=== PATIENT | female | born 1990 | race Caucasian/White ===

== ENCOUNTER 2024-09-02 03:42 | Emergency (ER) | payer BC, SELFPAY ==
[2024-09-02] VITALS (23 sets, daily range): BP systolic 102–128; BP diastolic 42–104; PULSE 63–89; RESP 20; TEMP 36.5; O2SAT 95–98; BMI 35.8
--- NOTE | 2024-09-02 03:59 | CRLHL7_ITS ---
For Patients: As a result of the Century Cures Act, medical imaging exams and procedure reports are released immediately into your electronic medical record. You may view this report before your referring provider. If you have questions, please contact your health care provider. Indication: Upper abdominal pain, worse in the right upper quadrant. History of gallstones.. Technique: CT of the abdomen and pelvis was performed following the administration of 100 mL Isovue 370. Comparison: None available. Findings: Visualized lung bases: Clear. Liver: Hepatic steatosis. Multiple gallstones within the gallbladder body and neck. No definite pericholecystic inflammatory change. No biliary ductal dilation. Pancreas: Unremarkable. Spleen: Unremarkable. Adrenals: Unremarkable. Kidneys: Few too small to characterize hypodensities within both kidneys. Right upper pole renal cortical scarring. No nephrolithiasis or hydronephrosis. Aorta/IVC: Retroaortic renal vein. Aorta is normal in caliber. Lymph nodes: No lymphadenopathy. Bowel: Small hiatal hernia. Nonobstructed bowel. Normal appendix. No localized inflammatory changes. No intraperitoneal free air or fluid. Pelvis: Unremarkable. Bones/body wall: Unremarkable for age. Impression: 1. Cholelithiasis without definite CT evidence of acute cholecystitis. Recommend right upper quadrant abdominal ultrasound for further evaluation. 2. Hepatic steatosis. Please note that all CT scans at this facility use dose modulation, iterative reconstruction, and/or weight-based dosing when appropriate to reduce radiation dose to as low as reasonably achievable. Dictated by Enedelia Lee MD @ 09/02/2024 5:01:13 AM (Electronically Signed)
--- NOTE | 2024-09-02 04:05 | ED_ITS ---
HPI - General Adult General Date Seen: 09/02/24 <Tristan P Papito Last Filed: 09/02/24 08:02> Chief complaint: Abdominal Pain <Tristan Cobos - Last Filed: 09/02/24 08:02> Stated complaint: gallbladder pain <Tristan Cobos - Last Filed: 09/02/24 08:02> Time Seen by Provider: 09/02/24 03:52 <Tristan Cobos - Last Filed: 09/02/24 08:02> Source: patient <Tristan Cobos DO - Last Filed: 09/02/24 08:02> Mode of arrival: ambulatory <Tristan Cobos Last Filed: 09/02/24 08:02> Limitations: no limitations <Tristan Cobos Filed: 09/02/24 08:02> History of Present Illness HPI narrative: Patient is a 34-year-old female presenting to emergency department for abdominal and back pain. She states symptoms started around 21:00 and have been gradually getting worse throughout the night. She took 2 Tylenol around 02:30 without any improvement in her symptoms. She is also feeling very nauseated at this time. Pain starts and her right upper quadrant and radiates to her epigastric region and her mid back. States she has had the exact same symptoms in the past about 2 or 3 years ago and at that time they were going to take out her gallbladder. They did of not taking her gallbladder out due to her getting sick the day of surgery with an unrelated illness and since she never had further symptoms after that surgery was never performed. States the only diffe rence this time is now she is nauseated while previously she was not having nausea with the pain. She had tacos at about 19:00 and was not having any symptoms at that time. She also states she had a bowel movement today that was normal. Has not had any fevers or chills. Denies chest pain, shortness of breath, headache, lightheadedness, dizziness, weakness, numbness, vision changes. No previous abdominal surgeries <Tristan Cobos - Last Filed: 09/02/24 08:02> Related Data Allergies/adverse reactions: Allergies Allergy/AdvReac Type Severity Reaction Status Date / Time No Known Drug Allergies Allergy Verified 09/02/24 04:49 <Tristan Cobos DO - Last Filed: 09/02/24 08:02> Review of Systems Status of ROS: Reports: 10 or more systems reviewed and unremarkable except as noted in History and below <Tristan Cobos DO - Last Filed: 09/02/24 08:02> [facility] Social History: Social History Smoking Status: Never smoker Do you use any of these nicotine containing products: None Second hand tobacco smoke exposure: No How often do you have a drink containing alcohol: never AUDIT-C Alcohol total score: 0 Non-prescribed substance use: denies use service: No <Tristan Cobos DO - Last Filed: 09/02/24 08:02> Exam Narrative: Exam Narrative: Const: Well-nourished, Well-developed, in moderate distress Eyes: PERRL, no conjunctival injection, and symmetrical lids HENT: Atraumatic external nose and ears. Moist mucous membranes. Neck: Symmetric, trachea midline, No thyromegaly. CVS: RRR, No murmurs or gallops. Peripheral pulses 2+ and equal in all ex tremities RESP: Unlabored respiratory effort. Clear to auscultation bilaterally. GI: Nontender/Nondistended, No rebound or guarding. Negative Gil sign MSK:Extremities w/o deformity, Normal Active ROM Skin: Warm, Dry. No rashes or lesions. Neuro: Normal Muscle tone, No focal neurological deficits. Psych: Awake, Alert, & Oriented x3. Appropriate mood and affect. <Tristan Cobos DO - Last Filed: 09/02/24 08:02> Const: Vital Signs, click to edit/add: Vital Signs - 24 hr 09/02/24 03:50 09/02/24 04:25 09/02/24 04:30 Temperature 97.7 F Pulse Rate 83 80 Pulse Rate [Pulse Oximeter] 86 Respiratory Rate 20 Blood Pressure Blood Pressure [Ri ght Upper Arm] 128/104 H Pulse Oximetry 98 97 96 Oxygen Delivery Me thod Room Air 09/02/24 04:31 09/02/24 04:32 09/02/24 05:00 Temperature Pulse Rate 72 73 68 Pulse Rate [Pulse Oximeter] Respiratory Rate Blood Pressure 119/88 Blood Pressure [Ri ght Upper Arm] Pulse Oximetry 97 97 96 Oxygen Delivery Me thod 09/02/24 05:01 09/02/24 05:02 09/02/24 05:30 Temperature Pulse Rate 69 72 69 Pulse Rate [Pulse Oximeter] Respiratory Rate Blood Pressure 119/77 Blood Pressure [Ri ght Upper Arm] Pulse Oximetry 96 96 95 Oxygen Delivery Me thod 09/02/24 05:31 09/02/24 05:32 09/02/24 06:00 Temperature Pulse Rate 63 67 65 Pulse Rate [Pulse Oximeter] Respiratory Rate Blood Pressure 117/72 Blood Pressure [Ri ght Upper Arm] Pulse Oximetry 95 95 95 Oxygen Delivery Me thod 09/02/24 06:01 09/02/24 06:02 09/02/24 06:30 Temperature Pulse Rate 63 74 75 Pulse Rate [Pulse Oximeter] Respiratory Rate Blood Pressure 107/75 Blood Pressure [Ri ght Upper Arm] Pulse Oximetry 96 95 95 Oxygen Delivery Me thod 09/02/24 06:31 09/02/24 07:00 09/02/24 07:01 Temperature Pulse Rate 68 85 89 Pulse Rate [Pulse Oximeter] Respiratory Rate Blood Pressure 102/70 106/68 Blood Pressure [Ri ght Upper Arm] Pulse Oximetry 95 98 98 Oxygen Delivery Me thod 09/02/24 07:30 09/02/24 07:31 09/02/24 07:32 Temperature Pulse Rate 72 68 82 Pulse Rate [Pulse Oximeter] Respiratory Rate Blood Pressure 114/42 L Blood Pressure [Ri ght Upper Arm] Pulse Oximetry 97 97 97 Oxygen Delivery Me thod 09/02/24 08:00 09/02/24 08:01 Temperature Pulse Rate 72 76 Pulse Rate [Pulse Oximeter] Respiratory Rate Blood Pressure 105/75 Blood Pressure [Ri ght Upper Arm] Pulse Oximetry 97 96 Oxygen Delivery Me thod <Tristan Cobos, DO - Last Filed: 09/02/24 08:02> Vital Signs, click to edit/add: Vital Signs - 24 hr 09/02/24 03:50 09/02/24 04:25 09/02/24 04:30 Temperature 97.7 F Pulse Rate 83 80 Pulse Rate [Pulse Oximeter] 86 Respiratory Rate 20 Blood Pressure Blood Pressure [Ri ght Upper Arm] 128/104 H Pulse Oximetry 98 97 96 Oxygen Delivery Me thod Room Air 09/02/24 04:31 09/02/24 04:32 09/02/24 05:00 Temperature Pulse Rate 72 73 68 Pulse Rate [Pulse Oximeter] Respiratory Rate Blood Pressure 119/88 Blood Pressure [Ri ght Upper Arm] Pulse Oximetry 97 97 96 Oxygen Delivery Me thod 09/02/24 05:01 09/02/24 05:02 09/02/24 05:30 Temperature Pulse Rate 69 72 69 Pulse Rate [Pulse Oximeter] Respiratory Rate Blood Pressure 119/77 Blood Pressure [Ri ght Upper Arm] Pulse Oximetry 96 96 95 Oxygen Delivery Me thod 09/02/24 05:31 09/02/24 05:32 09/02/24 06:00 Temperature Pulse Rate 63 67 65 Pulse Rate [Pulse Oximeter] Respiratory Rate Blood Pressure 117/72 Blood Pressure [Ri ght Upper Arm] Pulse Oximetry 95 95 95 Oxygen Delivery Me thod 09/02/24 06:01 09/02/24 06:02 09/02/24 06:30 Temperature Pulse Rate 63 74 75 Pulse Rate [Pulse Oximeter] Respiratory Rate Blood Pressure 107/75 Blood Pressure [Ri ght Upper Arm] Pulse Oximetry 96 95 95 Oxygen Delivery Me thod 09/02/24 06:31 09/02/24 07:00 09/02/24 07:01 Temperature Pulse Rate 68 85 89 Pulse Rate [Pulse Oximeter] Respiratory Rate Blood Pressure 102/70 106/68 Blood Pressure [Ri ght Upper Arm] Pulse Oximetry 95 98 98 Oxygen Delivery Me thod 09/02/24 07:30 09/02/24 07:31 09/02/24 07:32 Temperature Pulse Rate 72 68 82 Pulse Rate [Pulse Oximeter] Respiratory Rate Blood Pressure 114/42 L Blood Pressure [Ri ght Upper Arm] Pulse Oximetry 97 97 97 Oxygen Delivery Me thod 09/02/24 08:00 09/02/24 08:01 Temperature Pulse Rate 72 76 Pulse Rate [Pulse Oximeter] Respiratory Rate Blood Pressure 105/75 Blood Pressure [Ri ght Upper Arm] Pulse Oximetry 97 96 Oxygen Delivery Me thod <Kurtis Downs MD - Last Filed: 09/02/24 08:28> Course Course ED Course: Patient signed out to Dr. Downs at shift change-8:00 a.m. 34-year-old female had presented with abdominal pain thought to be related to biliary colic. Pain resolved while here in the ER. Patient had presented on the overnight shift. She had a CT scan of her abdomen that showed gallstones but no evidence for cholecystitis. Dr. Cobos suspects that this was a on self-limited episode of biliary colic. White count, LFTs, lipase are normal. He anticipates the patient will discharge home with plan for outpatient surgery clinic follow-up. Ultrasound is not available on the overnight here, no tech in house. Dr. Cobos ordered a gallbladder ultrasound this morning to make sure we are not missing other early signs of acute cholecystitis. Dr. Downs will follow-up on the results of the gallbladder ultrasound Gallbladder ultrasound: IMPRESSION: 1. Slight contracted appearance of the gallbladder. Cholelithiasis. Nonspecific gallbladder wall thickening measuring 5 millimeters. Negative sonographic Gil`s sign. 2. Fatty liver. Patient can be discharged as per Dr. Cobos so plan. <Kurtis Downs MD - Last Filed: 09/02/24 08:28> Vital Signs Vital signs: Initial Vital Signs Temperature 97.7 F 09/02/24 03:50 Temperature Source Temporal Artery Scan 09/02/24 03:50 Pulse Rate 86 09/02/24 03:50 Pulse Rhythm Regular 09/02/24 03:50 Pulse Strength 3+ Normal 09/02/24 03:50 Respiratory Rate 20 09/02/24 03:50 Blood Pressure 128/104 H 09/02/24 03:50 Blood Pressure Mean 112 H 09/02/24 03:50 Blood Pressure Position Semi-Fowlers 09/02/24 03:50 Pulse Oximetry 98 09/02/24 03:50 Oxygen Delivery Method Room Air 09/02/24 03:50 Vital Signs Temperature 97.7 F 09/02/24 03:50 Pulse Rate 86 09/02/24 03:50 Respiratory Rate 20 09/02/24 03:50 Blood Pressure 128/104 H 09/02/24 03:50 Pulse Oximetry 98 09/02/24 03:50 Oxygen Delivery Method Room Air 09/02/24 03:50 Temperature 97.7 F 09/02/24 03:50 Pulse Rate 76 09/02/24 08:01 Respiratory Rate 20 09/02/24 03:50 Blood Pressure 105/75 09/02/24 08:01 Pulse Oximetry 96 09/02/24 08:01 Oxygen Delivery Method Room Air 09/02/24 03:50 <Tristan Cobos DO - Last Filed: 09/02/24 08:02> Initial Vital Signs Temperature 97.7 F 09/02/24 03:50 Temperature Source Temporal Artery Scan 09/02/24 03:50 Pulse Rate 86 09/02/24 03:50 Pulse Rhythm Regular 09/02/24 03:50 Pulse Strength 3+ Normal 09/02/24 03:50 Respiratory Rate 20 09/02/24 03:50 Blood Pressure 128/104 H 09/02/24 03:50 Blood Pressure Mean 112 H 09/02/24 03:50 Blood Pressure Position Semi-Fowlers 09/02/24 03:50 Pulse Oximetry 98 09/02/24 03:50 Oxygen Delivery Method Room Air 09/02/24 03:50 Vital Signs Temperature 97.7 F 09/02/24 03:50 Pulse Rate 86 09/02/24 03:50 Respiratory Rate 20 09/02/24 03:50 Blood Pressure 128/104 H 09/02/24 03:50 Pulse Oximetry 98 09/02/24 03:50 Oxygen Delivery Method Room Air 09/02/24 03:50 Temperature 97.7 F 09/02/24 03:50 Pulse Rate 76 09/02/24 08:01 Respiratory Rate 20 09/02/24 03:50 Blood Pressure 105/75 09/02/24 08:01 Pulse Oximetry 96 09/02/24 08:01 Oxygen Delivery Method Room Air 09/02/24 03:50 <Kurtis Downs MD - Last Filed: 09/02/24 08:28> Medications Administered Medications: Discontinued Medications Generic Name Dose Route Start Last Admin Trade Name Freq PRN Reason Stop Dose Admin Morphine Sulfate 4 mg 09/02/24 03:59 09/02/24 04:19 Morphine 4 Mg/Ml Inj IVP 09/02/24 04:00 4 mg ONCE ONE Administration Ondansetron HCl 4 mg 09/02/24 03:59 09/02/24 04:20 Ondansetron 2 Mg/Ml Inj IVP 09/02/24 04:00 4 mg ONCE ONE Administration <DO Ceasar Bae Last Filed: 09/02/24 08:02> Discontinued Medications Generic Name Dose Route Start Last Admin Trade Name Wendy PRN Reason Stop Dose Admin Morphine Sulfate 4 mg 09/02/24 03:59 09/02/24 04:19 Morphine 4 Mg/Ml Inj IVP 09/02/24 04:00 4 mg ONCE ONE Administration Ondansetron HCl 4 mg 09/02/24 03:59 09/02/24 04:20 Ondansetron 2 Mg/Ml Inj IVP 09/02/24 04:00 4 mg ONCE ONE Administration <Kurtis Downs MD - Last Filed: 09/02/24 08:28> Medical Decision Making [facility] Narrative Medical decision making narrative: Patient is a 34-year-old female presenting to emergency department for right upper abdominal pain and back pain. Concerning pain is radiating to her back to a did have some thought about possible AAA but she has no risk factors and is otherwise stable vital signs of this seems unlikely. Differential also includes pancreatitis, liver disease, gallbladder disease. SBO seems unlikely concern she has had no previous surgery but this will be better evaluated with the CT. Do not have ultrasound available for another couple hours. Also ordered CBC, CMP, lipase. Morphine given for pain and Zofran for nausea. Patient's symptoms improved with the medication and she is able to rest now. Lab work returned showing no concerning abnormalities. CT scan reviewed myself and the radiologist shows cholelithiasis but no clear signs of cholecystitis. Radiology does recommend an ultrasound. This ultrasound is ordered. I did inform patient so at we will call ultrasound at 06:30 to perform the ultrasound and they are agreeable to this plan. Preliminary read from the ep technologist shows gradually worsening cholelithiasis compared to previous ultrasounds. No signs of cholecystitis. Patient will be signed out to my colleague pending official read. <Tristan Cobos DO - Last Filed: 09/02/24 08:02> Lab Data Labs: Lab Results 09/02/24 Range/Units 04:18 WBC 7.49 (4.50-11.00) K/uL RBC 4.31 (4.00-5.20) m/uL Hgb 12.7 (12.0-16.0) gm/dL Hct 36.5 (33.0-51.0) % MCV 85 (80-100) fL MCH 30 (26-34) pg MCHC 35 (32-36) gm/dL RDW Coeff of Shiv 12.0 (11.5-15.5) % Plt Count 304 (140-440) K/uL Neut % (Auto) 77.2 H (42.0-72.0) % Lymph % (Auto) 16.2 L (20-44) % [place] % (Auto) 5.3 (0.0-11.0) % Eos % (Auto) 0.1 (0.0-7.0) % Baso % (Auto) 0.4 (0.0-3.0) % Neut # (Auto) 5.80 (1.7-7.0) K/uL Lymph # (Auto) 1.20 (0.90-2.90) K/uL [place] # (Auto) 0.40 (0.00-0.90) K/UL Eos # (Auto) 0.01 (0.00-0.50) K/uL Baso # (Auto) 0.03 (0.00-0.30) K/uL Abs Immat Gran (auto) 0.06 (0.00-0.30) K/uL Imm/Tot Granulo (auto) 0.8 % Sodium 137 (135-149) mmol/L Potassium 4.1 (3.6-5.1) mmol/L Chloride 106 (96-114) mmol/L Carbon Dioxide 23 (20-32) mmol/L Anion Gap 8 (7-15) mEq/L BUN 11 (5-24) mg/dL Creatinine 0.7 (0.5-1.5) mg/dL Estimated Creat Clear 100.94 Estimated GFR 116 ml/min Glucose 120 H (60-115) mg/dL Calcium 9.3 (8.4-10.6) mg/dL Total Bilirubin 0.5 (0.1-1.5) mg/dL AST 26 (12-35) U/L ALT 20 (4-35) U/L Alkaline Phosphatase 48 (40-150) U/L Total Protein 7.6 (6.0-8.3) g/dL Albumin 4.7 (3.3-5.0) g/dL Lipase 85 (23-300) U/L <Tristan Cobos, - Last Filed: 09/02/24 08:02> Lab Results 09/02/24 Range/Units 04:18 WBC 7.49 (4.50-11.00) K/uL RBC 4.31 (4.00-5.20) m/uL Hgb 12.7 (12.0-16.0) gm/dL Hct 36.5 (33.0-51.0) % MCV 85 (80-100) fL MCH 30 (26-34) pg MCHC 35 (32-36) gm/dL RDW Coeff of Shiv 12.0 (11.5-15.5) % Plt Count 304 (140-440) K/uL Neut % (Auto) 77.2 H (42.0-72.0) % Lymph % (Auto) 16.2 L (20-44) % [place] % (Auto) 5.3 (0.0-11.0) % Eos % (Auto) 0.1 (0.0-7.0) % Baso % (Auto) 0.4 (0.0-3.0) % Neut # (Auto) 5.80 (1.7-7.0) K/uL Lymph # (Auto) 1.20 (0.90-2.90) K/uL [place] # (Auto) 0.40 (0.00-0.90) K/UL Eos # (Auto) 0.01 (0.00-0.50) K/uL Baso # (Auto) 0.03 (0.00-0.30) K/uL Abs Immat Gran (auto) 0.06 (0.00-0.30) K/uL Imm/Tot Granulo (auto) 0.8 % Sodium 137 (135-149) mmol/L Potassium 4.1 (3.6-5.1) mmol/L Chloride 106 (96-114) mmol/L Carbon Dioxide 23 (20-32) mmol/L Anion Gap 8 (7-15) mEq/L BUN 11 (5-24) mg/dL Creatinine 0.7 (0.5-1.5) mg/dL Estimated Creat Clear 100.94 Estimated GFR 116 ml/min Glucose 120 H (60-115) mg/dL Calcium 9.3 (8.4-10.6) mg/dL Total Bilirubin 0.5 (0.1-1.5) mg/dL AST 26 (12-35) U/L ALT 20 (4-35) U/L Alkaline Phosphatase 48 (40-150) U/L Total Protein 7.6 (6.0-8.3) g/dL Albumin 4.7 (3.3-5.0) g/dL Lipase 85 (23-300) U/L <Kurtis Downs MD - Last Filed: 09/02/24 08:28> Imaging Data CT scan abdomen and pelvis: Attestation: I have reviewed the pertinent imaging results. <Tristan Cobos DO - Last Filed: 09/02/24 08:02> Radiologist's impression: 1. Cholelithiasis without definite CT evidence of acute cholecystitis. Recommend right upper quadrant abdominal ultrasound for further evaluation. 2. Hepatic steatosis. Please note that all CT scans at this facility use dose modulation, iterative reconstruction, and/or weight-based dosing when appropriate to reduce radiation dose to as low as reasonably achievable. Dictated by Enedelia Lee MD @ 09/02/2024 5:01:13 AM <Tristan Cobos DO - Last Filed: 09/02/24 08:02> Discharge Plan Discharge Clinical Impression: Cholelithiasis Qualifiers: Cholelithiasis location: other site Biliary obstruction: without biliary o bstruction Qualified Code(s): K80.80 - Other cholelithiasis without obstruction <Tristan Cobos DO - Last Filed: 09/02/24 08:02> Patient Disposition: Home, Self-Care <Tristan Cobos DO - Last Filed: 09/02/24 08:02> Condition: Improved <Tristan Cobos DO - Last Filed: 09/02/24 08:02> Instructions: Laparoscopic Cholecystectomy (DC) <Tristan Cobos DO - Last Filed: 09/02/24 08:02> Additional Instructions: Take Tylenol and ibuprofen for pain. If that is not working try oxycodone. Also prescribed Zofran for nausea. Oxycodone and Zofran prescribed to instymeds. Follow-up with general surgery about your gallstones to possibly so set up cholecystectomy. Can call them at [phone] to set up appointment. <Tristan Cobos DO - Last Filed: 09/02/24 08:02> Follow Up/Referrals: Provider,Not a Local [Primary Care Provider] - <Tristan Cobos, - Last Filed: 09/02/24 08:02> Stand Alone Forms: MyHealth Info Instructions <Tristan Cobos, - Last Filed: 09/02/24 08:02>
[2024-09-02] MEDS: MORPHINE 4 MG/ML INJ IVP (04:19)
[2024-09-02] MEDS: ONDANSETRON 2 MG/ML inj 4 MG IVP (04:20)
[2024-09-02 04:21] LABS: Basophils Absolute Auto 0.03 K/uL (0.00-0.30); Basophils Percent Auto 0.4 % (0.0-3.0); Eosinophils Absolute Auto 0.01 K/uL (0.00-0.50); Eosinophils Percent Auto 0.1 % (0.0-7.0); Hematocrit 36.5 % (33.0-51.0); Hemoglobin* 12.7 gm/dL (12.0-16.0); Immature Granulocytes Abs Auto 0.06 K/uL (0.00-0.30); Immature Granulocytes Pct Auto 0.8 %; Lymphocytes Percent Auto 16.2 % (20-44); Mean Corpuscular HGB Conc 35 gm/dL (32-36); Mean Corpuscular Hemoglobin 30 pg (26-34); Mean Corpuscular Volume 85 fL (80-100); Monocytes Percent Auto 5.3 % (0.0-11.0); Neutrophils Percent Auto 77.2 % (42.0-72.0); Platelet Count* 304 K/uL (140-440); Red Blood Count 4.31 m/uL (4.00-5.20); White Blood Count* 7.49 K/uL (4.50-11.00)
[2024-09-02 04:22] LABS: Slide Review Reflex No
[2024-09-02 04:44] LABS: Albumin* 4.7 g/dL (3.3-5.0); Chloride* 106 mmol/L (96-114); Potassium* 4.1 mmol/L (3.6-5.1); Sodium* 137 mmol/L (135-149)
[2024-09-02 04:47] LABS: Alanine Aminotransferase* 20 U/L (4-35); Alkaline Phosphatase* 48 U/L (40-150); Anion Gap 8 mEq/L (7-15); Aspartate Amino Transferase* 26 U/L (12-35); Bilirubin Total* 0.5 mg/dL (0.1-1.5); Blood Urea Nitrogen* 11 mg/dL (5-24); Calcium* 9.3 mg/dL (8.4-10.6); Carbon Dioxide* 23 mmol/L (20-32); Creatinine* 0.7 mg/dL (0.5-1.5); Est. Creatinine Clearance* 100.94; Estimated Glomerular Filt Rate 116 ml/min; Glucose* 120 mg/dL (60-115); Lipase* 85 U/L (23-300); Total Protein* 7.6 g/dL (6.0-8.3)
--- NOTE | 2024-09-02 05:07 | CRLHL7_ITS ---
For Patients: As a result of the Century Cures Act, medical imaging exams and procedure reports are released immediately into your electronic medical record. You may view this report before your referring provider. If you have questions, please contact your health care provider. CLINICAL HISTORY: Abnormal CT FINDINGS: Increased echogenicity of the liver. Negative sonographic Gil`s sign. Cholelithiasis. Gallbladder appears contracted gallbladder wall measures 5 mm in thickness. The common bile duct is of normal size and measures 5 mm in diameter at the level of the sonny hepatis. IMPRESSION: 1. Slight contracted appearance of the gallbladder. Cholelithiasis. Nonspecific gallbladder wall thickening measuring 5 millimeters. Negative sonographic Gil`s sign. 2. Fatty liver. Dictated by Charmaine Martínez MD @ 09/02/2024 8:21:41 AM (Electronically Signed)
--- OUTSIDE RECORDS SUMMARY | 2024-09-02 05:13 | XMS_ITS | Clinical Summary ---
Author Organization [employer] [facility] Address [place], [place] [address] Care Team Providers Care Cemetery Keeper Name Role Phone Sandrine Queen BIKE DESIGNER Primary Care Provider [phone] Allergies No known active allergies Medications No known medications Active Problems Problem Noted Date Diagnosed Date Calculus of gallbladder with chronic cholecystitis without obstruction 10/28/2021 (spontaneous vaginal delivery) 01/01/2020 Supervision of other normal 07/03/2019 Overview (07/03/2019): 29 y.o. Medical concerns: Early GTT indicated: BMI >25 or >23 in Americans H/O vag delivery X 2 OB History Para Term AB Living 4 2 2 0 1 2 SAB TAB Ectopic Multiple Live Births 1 0 0 0 1 # Outcome Date GA Lbr Samuel/2nd Weight Sex Delivery Anes PTL Lv 4 Current 3 Term 09/10/14 39w3d 4.34 kg (9 lb 9 oz) F Vag EPIDURAL N MERLE Comments: BLN:IBRAHIMA PEDS:[facility] 2 SAB 07/2013 6w0d 1 Term 04/15/11 40w4d 3.86 kg (8 lb 8 oz) F Vag EPIDURAL N Genetic screening: BMI:# Recommended wt gain HSV: Denies Ultrasound findings: 05/23/19 - Single IUP at 6.2 weeks Flu vaccine: Pertussis Vaccine: Peds: Fernando Muniz FOB: Kleber - Involved Myopia of both eyes 01/05/2019 Bilateral retinal lattice degeneration 9 Hyponatremia 08/31/2018 Overview (08/31/2018): Aug 2018: Serum Sodium 123. Anxiety disorder, unspecified 10/29/2016 Obesity (BMI 30-39.9) 10/01/2016 Papanicolaou smear of cervix with low grade squamous intraepithelial lesion (LGSIL) 11/29/2010 Overview (10/01/2016): LGSIL 2010, has ASCUS with high risk hpv in 2009 Resolved Problems Problem Noted Date Diagnosed Date Resolved Date (normal spontaneous vaginal delivery) 09/10/2014 03/07/2018 Supervision of normal 04/30/2014 03/07/2018 Normal delivery 04/15/2011 02/08/2014 Late care 11/24/2010 3 Supervision of normal first 11/24/2010 02/08/2014 PHARYNGITIS, ACUTE 10/16/2002 3 Immunizations Name Administration Dates Next Due COVID-19 vaccine (Moderna 100mcg/0.5mL) PF, MDV 01/04/2021 DTP 07/09/1994, 0,1989, 989,1989 HIB PRP-OMP (PedvaxHIB) 10/25/1990 Hepatitis A (Adult) 04/20/2013 Hepatitis B (Adult) 04/20/2013 Hepatitis B (Peds) 08/18/2001,07/18/2001 Human Papilloma Virus Vaccine 04/20/2013, 011,05/28/2011 Influenza, IIV3 (Age >=3 years) 08/11/2013 Influenza, IIV4 08/15/2019,10/01/2016,09/11/2014 MMR 07/18/2001,08/11/1990 Oral Polio Vaccine 07/09/1994, 0,1989, 989 Tdap 10/24/2019,06/22/2014,04/17/2011 Family History Medical History Relation Name Comments Good Health Daughter 1 Good Health Daughter 2 Other Father Muscular disord er Endometriosis Half-Sister 1 Good Health Half-Sister 1 Thyroid Disease Half-Sister 1 Good Health Half-Sister 2 Good Health Half-Sister 3 Cancer Maternal Grandfather Emphysema Maternal Grandmother Osteoarthritis Mother Other Mother Brain tumor, an eurysm (benign) Thyroid Disease Mother Alcoholism Paternal Grandfather Other Paternal Grandmother Alzheim ers Relation Name Status Comments Daughter 1 Alive Daughter 2 Alive Father Alive Half-Sister 1 Alive Half-Sister 2 Alive Half-Sister 3 Alive Maternal Grandfather Maternal Grandmother Mother Alive Paternal Grandfather Alive Paternal Grandmother Social History Tobacco Use Types Packs/Day Years Used Date Smoking Tobacco: Never Smokeless Tobacco: Never Tobacco Cessation:Counseling Given: Yes Alcohol Use Standard Drinks/Week Comments Not Currently 0 (1 standard drink = 0.6 oz pur e alcohol) Not since + UPT PHQ-2 Answer Date Recorded PHQ-2 Score 0 07/04/2019 Social Connections Answer Date Recorded Frequency of Communication with Friends and Fami ly 0 12/02/2023 Financial Resource Strain Answer Date R ecorded Difficulty of Paying Living Expenses 3 12/02/2023 Difficulty of Paying Living Expenses Not on file 12/02/2023 Food Insecurity Answer Date Recorded Worried About Running Out of Food in the Last Ye ar 1 12/02/2023 Transportation Needs Answer Date Record ed Lack of Transportation (Medical) 1 12/02/2023 Housing Stability Answer Date Recorded Unable to Pay for Housing in the Last Year 1 12/02/2023 Sex and Gender Information Value Date Recorded Sex Assigned at Not on file Gender Identity Not on file Sexual Orientation Not on file Obstetrics History Para Term AB IAB SAB Ectopic Multiple Livin g Live Births 4 3 3 0 1 0 1 0 0 2 1 Date Outcome GA Total Labor Labor/2nd/3rd Weight Sex Type Anes PTL Merle A1 A5 Name Clin 011 Term 40w 4d 3.86 kg (8 lb 8 oz) F Vag Epidur al N Jennifer Complications:None Delivery Location:[place] 07/2013 SAB 6w0 d 014 Term 39w 3d 4.34 kg (9 lb 9 oz) F Vag Epidur al N Livin g 8 9 Jessica Complications:None Delivery Location:[facility] Comments:BLN:IBRAHIMA Chi EDS:[facility] 020 Term 38w 1d 0h 10m 3.46 kg (7 lb 10.1 oz) F Vag IV Meds N 8 9 ERNANDEZ NO,BG MED Complications:None Delivery Location:[facility] (UTD 2000 MB L&D TRIAGE) Comments G1: no complications during or delivery (Jennifer) G2: no interventions required G3: no complications during or delivery (Teri) Unremarkable delivery, didn't push for very long Last Filed Vital Signs Vital Sign Reading Time Taken Comments Blood Pressure 112/78 12/02/2023 2:[address] Pulse 100 12/02/2023 2:[address] Temperature 36.8 ??C (98.3 ??F) 12/02/2023 2:18 PM CS T Respiratory Rate 15 10/30/2021 2:[address] MARKER Oxygen Saturation 99% 12/02/2023 2:[address]ER Inhaled Oxygen Concentration - - Weight 96.9 kg (213 lb 9.6 oz) 12/02/2023 2:[address] MARKER Height 166.4 cm (5' 5.5) 10/30/2021 2:[address] MARKER Body Mass Index 35 10/30/2021 2:[address]ER Plan of Treatment Health Maintenance Due Date Last Done Comments Pap test for age 21-65 10/01/2019 6, 03/06/2014, 04/20/2013, Additional history exists Depression screening for age 12+ 07/04/2020 07/04/2019, 03/07/2018, 10/29/2016, Additional history exists BMI (ht and wt on same day) for age 18+ 10/30/2022 10/30/2021, 09/30/2021, 08/19/2021, Additional history exists COVID-19 vaccine series ( season) 2024 02/01/2021, 01/04/2021 Influenza for age 9-49 07/30/2024 9, 10/01/2016, 09/11/2014, Additional history exists Tetanus booster 10/24/2029 10/24/2019, 05/30, 04/17/2011 HIV for age 15-65 Completed 07/04/2019, , 08/24/2013, Additional history exists Hepatitis C screening for age 18-79 Completed 07/04/2019 Tdap Completed 10/24/2019, 05/30, 04/17/2011 Pneumococcal series for age 6-64 Aged Out No longer eligible based on patient's age to complete this topic Procedures Procedure Name Priority Date/Time Associated Diagnosis Comments ANTI HIV 1/2 Routine 07/04/2019 1:57 PM CDT Supervision of other normal ANTI HCV Routine 07/04/2019 1:57 PM CDT Supervision of other normal BELL ATTENDANT THIN PREP PAP SCREEN IMAGED Routine 10/01/2016 10:03 AM CDT Papanicolaou smear of cervix with low grade squamous intraepithelial lesion (LGSIL) from Last 3 Months or Most Recently Relevant to Health Maintenance Results * ANTI HCV (07/04/2019 1:57 PM CDT) HEPATITIS C ANTIBODY Non-React josafat Non-React josafat 07/04/2019 9:37 PM CDT [facility] Comment:Antibodies to HCV no t detected; does not exclude the possibility of exposure to HCV. Blood BLOOD SPECIMEN / Unknown Venipuncture / Unknown 07/04/2019 1:57 PM CDT 07/04/2019 1:57 PM CDT Aaron Murillo MD SEND OUTS Performing Organization Address City/[facility]/ZIP Co de Phone Number [facility] [address] [place] [address], * ANTI HIV 1/2 (07/04/2019 1:57 PM CDT) Pathologist [facility] [place] HIV-1/HIV-2 ANTIBODY Non-Reacti ve Non-Reacti ve 07/04/2019 9:36 PM CDT [facility] Comment:HIV-1 p24 and HIV-1/ HIV-2 Ab not detected. Blood BLOOD SPECIMEN / Unknown Venipuncture / Unknown 07/04/2019 1:57 PM CDT 07/04/2019 1:57 PM CDT Aaron Murillo MD SEND OUTS [facility] [address] [place] [address], [place] * BELL ATTENDANT THIN PREP PAP SCREEN IMAGED (10/01/2016 10:03 AM CDT) Case Report Gynecologic Cytology Report ? Case: [id number] ? Authorizing Provider: ??Marilee Pandya MD ?Collected: ? 10/01/2016 1003 ? Ordering Location: ? [facility] ?? Received: ?10/01/2016 1004 ? Clinic ? First Screen: ?Notermann, Amanda ? Rescreen: ?Rubia Coleman ? Specimen: ?BELL ATTENDANT ThinPrep Vial Screening, Cervical ? 10/09/2016 1:28 PM [facility] INTERPRETATION/ RESULT NEGATIVE FOR INTRAEPITHELIAL LESION OR MALIGNANCY (NIL) (none) 10/09/2016 1:28 PM [facility] IMEN ADEQUACY Satisfactory for evaluation Endocervical component present 10/09/2016 1:28 PM [facility] HPV REQUEST HPV if ASCUS 10/09/2016 1:28 PM [facility] Date of LMP 09/17/2016 10/09/2016 1:28 PM [facility] Last Pap Date 03/06/2014 10/09/2016 1:28 PM [facility] Last Pap Result NIL 6 1:28 PM [facility] Abnormal Pap or Meeker Bx in last 5 years Yes 10/09/2016 1:28 PM [facility] Menstrual Status Regular Periods 10/09/2016 1:28 PM [facility] Meeker Bx Done Today No 10/09/2016 1:28 PM [facility] Additional Information None given 10/09/2016 1:28 PM [facility] Automated Review Successful 10/09/2016 1:28 PM [facility] Comment:Specimen processed s uccessfully by automated ski topper device, ThinPrep Imaging System, [employer] Note The pap test is a screening technique, not a diagnostic procedure. It is used primarily to screen for squamous cancers and precursor lesions. Published studies have shown that it is subject to both false negative and false positive results. The pap test should not be used as the sole means to diagnose or exclude pre-malignant and malignant lesions. 10/09/2016 1:28 PM [facility] Other (Cervical) 10/01/2016 10:03 AM CDT 10/01/2016 10:04 AM CDT Marilee Pandya MD PATHOLOGY/[facility] [address] [place] [address], [place] from Last 3 Months or Most Recently Relevant to Health Maintenance Advance Directives * Full Code (Latest Code Status on File) Date Activated Date Inactivated Comments 01/01/2020 9:12 AM 01/02/2020 7:18 PM * Full Code Date Activated Date Inactivated Comments 09/10/2014 2:18 PM 09/11/2014 9:12 PM * Full Code Date Activated Date Inactivated Comments 09/10/2014 9:55 AM 09/10/2014 2:18 PM * Full Code Date Activated Date Inactivated Comments 09/10/2014 9:34 AM 09/10/2014 9:55 AM * Full Code Date Activated Date Inactivated Comments 04/15/2011 9:46 AM 04/17/2011 2:43 PM Care Teams Cemetery Keeper Relationship Specialty [place] [address] [place] [address] PCP - General Nurse Practitioner 05/15/19
== END 2024-09-02 08:55 | disposition home or self-care (01) ==
PROVIDERS: Emergency Provider Student in an Organized Health Care Education/Training Program
DX: K80.80 Other cholelithiasis without obstruction (principal)
CPT/HCPCS: 36415; 74177; 76705; 80053; 83690; 85025; 96374; 96375; 99283; 99284; J2270; J2405; Q9967